=== PATIENT | female | born 1985 | race Two or more races ===

== ENCOUNTER → 2021-09-18 | Emergency (ER) | payer OTHER ==
[~2021-09-18] VITALS: Ht 170.2 cm; Wt 74.8 kg
[2021-09-18 19:14] VITALS: BP 128/89
== END | disposition home or self-care (01) ==
LOC: ER 18:55 → EDBD 18:55
DX: S09.90XA Unspecified injury of head, initial encounter (principal); W19.XXXA Unspecified fall, initial encounter; Y93.89 Activity, other specified; Y92.89 Other specified places as the place of occurrence of the external cause; Y99.8 Other external cause status
CPT/HCPCS: 70450

== ENCOUNTER 2022-11-23 00:03 | Emergency (ER) | payer MEDICAID, OTHER ==
[~2022-11-23] VITALS: Ht 160 cm; Wt 71.8 kg
[2022-11-23 00:30] VITALS: PULSE 72; RESP 18; O2SAT 97
[2022-11-23 00:32] VITALS: TEMP 98.3
[2022-11-23] MEDS ORDERED: methylPREDNISolone SOD SUCC 40 MG/ML VL IV ONE (00:45)
[2022-11-23] MEDS ORDERED: FAMOTIDINE (10MG/ML) 2ML VL IV ONE (00:45)
[2022-11-23] MEDS ORDERED: PRED20TA2 PO (01:53)
[2022-11-23] MEDS ORDERED: FAMO20TA10 PO (01:53)
[2022-11-23] MEDS ORDERED: DIPH25TA54 PO (01:53)
[2022-11-23 02:00] VITALS: BP 120/77; PULSE 71; RESP 14; O2SAT 98
[2022-11-23] MEDS ORDERED: hydrOXYzine 25 MG TAB or CAP PO ONE (02:15)
== END 2022-11-23 02:10 | disposition home or self-care (01) ==
LOC: EDBD 00:03 → ER 00:09
DX: R07.9 Chest pain, unspecified (principal); T78.40XA Allergy, unspecified, initial encounter; F41.9 Anxiety disorder, unspecified; X58.XXXA Exposure to other specified factors, initial encounter
CPT/HCPCS: 36415; 84484; 96374; 96375; 99285; J2920; J3490